=== PATIENT | male | born 1965 | race Caucasian/White ===

== ENCOUNTER 2016-03-31 10:36 | Emergency (ER) | payer BC, OTHER ==
[~2016-03-31] VITALS: Wt 109.0 kg
[~2016-03-31 10:36] MED LIST: NO MEDS
[2016-03-31] MEDS ORDERED: MINE3.5O30 LEFT EYE (12:38)
[2016-03-31] MEDS ORDERED: PRED20TA PO (12:38)
[2016-03-31] MEDS ORDERED: ACYC400T2 PO (12:40)
--- NOTE | 2016-03-31 12:55 | ERD ---
ER Documentation Chief Complaint Date/Time DATE: 03/31/16 TIME: 12:41 Chief Complaint LEFT SIDE FACIAL PARALYSIS ONSET AT 0400. SPEECH CLEAR.NO MOTOR DEF HPI The patient is a 51-year-old male with no past medical or surgical history here with 2 days of left eyelid drooping and left-sided mouth drooping. He reports a recent upper respiratory infection, which has now since resolved. He denies chest pain, difficulty breathing, difficulty swallowing, shortness of breath, dizziness, lightheadedness, nausea, vomiting, diarrhea, numbness or weakness anywhere, gait disturbance, limb numbness or tingling, or any other symptoms or concerns. ROS All systems reviewed and are negative except as per history of present illness. Medications Home Meds Active Scripts Acyclovir* (Acyclovir*) 400 Mg Tablet, 400 MG PO 5 TIMES DAILY for 10 Days, TAB Prov:DEE JOHNSON, RESTA[employer]ANT HOURLY MANAGER 03/31/16 Mineral Oil/Petrolatum,White (ARTIFICIAL TEARS EYE OINT) 3.5 Gm Oint...g., 1 APPLIC LEFT EYE NEEDED Y for DRY EYES, #1 EA Prov:DEE JOHNSON NP 03/31/16 Prednisone* (Prednisone*) 20 Mg Tab, 40 MG PO DAILY for 4 Days, TAB Prov:DEE JOHNSON, EMERY 03/31/16 Reported Medications [No Meds] No Conflict Check 02/12/10 Allergies Allergies: Coded Allergies: No Known Drug Allergies (Verified Allergy, Mild, 02/12/10) PMhx/Soc History of Surgery: No Anesthesia Reaction: No Hx Neurological Disorder: No Hx Respiratory Disorders: No Hx Cardiac Disorders: No Hx Psychiatric Problems: No Hx Miscellaneous Medical Probl: No Hx Alcohol Use: Yes Hx Substance Use: No Hx Tobacco Use: Yes Physical Exam Vitals Vital Signs Date Time Temp Pulse Resp B/P Pulse Ox O2 Delivery O2 Flow Rate FiO2 03/31/16 10:41 98.8 90 21 158/75 98 Physical Exam INITIAL VITAL SIGNS: Reviewed by me GENERAL: Alert. Well developed and well nourished. No respiratory distress HEAD: Head is normocephalic. Atraumatic. EYES: EOMI. PERRL. No scleral icterus. No conjunctival injection. ENT: External ears and nose normal. Decreased nasolabial fold on the left side. Left side of the mouth lower than the right side of the mouth. Nasal passages patent. Moist mucous membranes. NECK: Supple. Full range of motion. Trachea midline. RESPIRATORY: No tachypnea. Clear to auscultation bilaterally. No wheezing, rales , or rhonchi. CV: Regular rate and rhythm. No murmurs, rubs, or gallops ABDOMEN: Soft, non-distended, non-tender. No guarding. No rebound. No masses. Bowel sounds normal in all quadrants. BACK: No CVA tenderness. Full ROM. EXTREMITIES: No obvious deformity. No clubbing or cyanosis. No edema. Sensation intact to light touch all extremities. Strength 5/5 in all joints of all extremities. Strong hand grasps. Peripheral pulses strong. SKIN: Warm and dry. No diaphoresis. No obvious rashes or lesions. NEUROLOGIC: Alert and oriented x 4. + Left eyelid drooping. + Left eyelid unable to be shut tight. + Left corner of the mouth is drooped. + Smile asymmetrical with left side of the mouth lower. + Unable to raise left eyebrow. Cranial nerve exam normal except for cranial nerve VII. cerebellar exam normal: Rapid alternating movements, [id number], heel to perez normal. Negative Romberg. No focal neurologic deficits other than the left eyelid drooping, the left corner of the mouth drooping the asymmetrical smile, and the decreased nasolabial fold on the left side. Speech is normal. Moves all extremities equally. Gait steady. Results 24 hrs Current Medications Medications (Trade) Dose Ordered Sig/Nisreen Route PRN Reason Start Time Stop Time Status Last Admin Dose Admin Prednisone (Prednisone) 60 mg ONCE ONCE PO 03/31/16 13:00 03/31/16 13:00 DC 03/31/16 12:49 Procedures/MDM Nursing Notes Reviewed Previous Medical Records requested via [employer]. EMERGENCY DEPARTMENT COURSE / MEDICAL DECISION MAKING: The patient comes to the ED secondary to left-sided eyelid drooping and left- sided mouth drooping 2 days. Differential diagnosis upon initial evaluation includes but is not limited to: CVA, Matson's palsy The patient was treated with prednisone 60 mg by mouth. The patient's history of present illness and physical exam are most consistent with Matson's palsy. His hand grasps were strong bilaterally. Bilateral upper extremity strength 5/5. Sensation intact to light touch of bilateral upper extremities. Bilateral lower extremity strength 5/5. Sensation intact to light touch of bilateral lower extremities. He was ambulatory with steady gait. He was able to walk on heels and toes. Negative Romberg. Rapid alternating movements, [id number], and finger to nose intact. Cranial nerve exam normal except for cranial nerve VII. The case was discussed with Dr. Holland, who agreed with the assessment and plan. It was agreed that the patient is an appropriate candidate for outpatient management and follow-up with treatment for Matson's palsy. Final impression: Matson's palsy Based on patient's history of present illness and physical examination the decision was made to discharge. There is no evidence of life threatening injuries or illnesses at this time. On re-examination, patient resting in no distress, stable vital signs, reports feeling better and safe for discharge with outpatient follow up with PMD in 2-3 days. Patient given return precautions. He verbalized understanding and agreed to return precautions. He will return here immediately for any new or worsening symptoms. He agrees with the plan of care and all of his questions and concerns were addressed prior to discharge. He agrees with the plan of care. I instructed him to please patch his left eye at night while he is sleeping and use artificial tears in his left eye frequently. I informed him of the dangers of allowing his eye to dry out including vision loss. He verbalized understanding and agreed. Patient's blood pressure was elevated but appears stable without evidence of hypertensive emergency, end organ damage, chest pain or shortness of breath. The patient was counseled about the risks of untreated hypertension and urged to pursue outpatient monitoring and therapy in 2-3 days with their primary care physician. Prescriptions Prednisone Acyclovir Artificial tears Departure Diagnosis: Primary Impression: Matson palsy Condition: Stable Patient Instructions: Matson's Palsy Additional Instructions: Llame al doctor RACHAEL y jose césar MANSOOR PARA DENTRO DE 2-3 MCFADDEN.Dgale a la secretaria que nosotros le instruimos hacer esta mansoor.Avise o llame si meadows condicin se empeora antes de la mansoor. Regresa aqui si peor o no mejor. DEE JOHNSON NP Mar 31, 2016 12:54
[2016-03-31] MEDS ORDERED: predniSONE 20 MG TAB PO ONE (13:00)
== END 2016-03-31 12:56 | disposition home or self-care (01) ==
LOC: FTE 10:36
DX: G51.0 Bell's palsy (principal)
CPT/HCPCS: J7512; Z7502; 99284

== ENCOUNTER 2018-06-22 12:32 | Day surgery (SDC) | payer OTHER ==
[~2018-06-22] VITALS: Ht 165.1 cm; Wt 107.7 kg
[~2018-06-22 12:32] MED LIST changes: +ACYC400T2 PO; +MINE3.5O30 LEFT EYE; +PRED20TA PO
[2018-06-22] MEDS ORDERED: AMLODIPINE (13:18)
[2018-06-22 13:23] VITALS: Ht 165.1 cm; Wt 107.7 kg
[2018-06-22 13:28] VITALS: BP 133/87; PULSE 94; RESP 16
--- NOTE | 2018-06-22 13:32 | PREAC ---
Date/Time of Note Date/Time of Note DATE: 06/22/18 TIME: 13:31 Anesthesia Eval and Record Evaluation Time Pre-Procedure Interview DATE: 06/22/18 TIME: 13:31 Age 53 Sex male NPO: 8 hrs Preoperative diagnosis + occult blood Planned procedure colonoscopy Past Medical History Past Medical History: Includes Cardio: HTN GI: Obesity Surgery & Anesthesia Issues No known issue Meds Anticoagulation: No Beta Uma within 24 hr: No Reason Beta Uma not given: Pt. not on B-Uma Active Scripts Acyclovir* (Acyclovir*) 400 Mg Tablet, 400 MG PO 5 TIMES DAILY for 10 Days, TAB Prov:DEE JOHNSON, MULTI OPERATION MACHINE OPERATOR 03/31/16 Mineral Oil/Petrolatum,White (ARTIFICIAL TEARS EYE OINT) 3.5 Gm Oint...g., 1 APPLIC LEFT EYE NEEDED PRN for DRY EYES, #1 EA Prov:DEE JOHNSON, MULTI OPERATION MACHINE OPERATOR 03/31/16 Prednisone* (Prednisone*) 20 Mg Tab, 40 MG PO DAILY for 4 Days, TAB Prov:DEE JOHNSON, MULTI OPERATION MACHINE OPERATOR 03/31/16 Reported Medications [Amlodipine] No Conflict Check 06/22/18 [No Meds] No Conflict Check 02/12/10 Meds reviewed: Yes Allergies Coded Allergies: No Known Drug Allergies (Verified Allergy, Mild, 02/12/10) Allergies Reviewed: Yes Labs/Studies Labs Reviewed: Reviewed by anesthesiologist test: N/A Pre-procedure Exam Airway: Adequate mouth opening, Adequate thyromental dist Mallampati: Mallampati II Teeth: Normal Lung: Normal Heart: Normal ASA Physical Status ASA physical status: 2 Emergency: None Planned Anesthetic General/MAC: MAC Pre-operative Attestations Prior to commencing anesthesia and surgery, the patient was re-evaluated, there was verification of: *The patient's identity *The results of appropriate recent lab work and preoperative vital signs *The above evaluation not changing prior to induction *Anesthetic plan, risk benefits, alternative and complications discussed with patient/family; questions answered; patient/family understands, accepts and wishes to proceed. KIRSTY HUFFMAN June 22, 2018 13:32
[2018-06-22] MEDS ORDERED: PROPOFOL 40 ML ONE (13:33)
[2018-06-22] MEDS ORDERED: LIDOCAINE 2% (SDV) 5 ML INJ ONE (13:33)
[2018-06-22] MEDS ORDERED: ACETAMINOPHEN 500 MG TAB PO PRN (14:00)
[2018-06-22] MEDS ORDERED: FENTAnyl 50 MCG/ML VIAL IV PRN (14:00)
[2018-06-22] MEDS ORDERED: ALBUTEROL 0.083% (NEB) 2.5 MG/3 ML AMP HHN PRN (14:00)
[2018-06-22] MEDS ORDERED: ONDANSETRON 4 MG INJ IV PRN (14:00)
--- NOTE | 2018-06-22 14:06 | PAC ---
Date/Time of Note Date/Time of Note DATE: 06/22/18 TIME: 14:05 Post-Anesthesia Notes Post-Anesthesia Note Last documented vital signs 1405 -- T 98, Hr 88, 116/76, 98%, rr 16 Activity: WNL Respiratory function: WNL Cardiovascular function: WNL Mental status: Baseline Pain reasonably controlled: Yes Hydration appropriate: Yes Nausea/Vomiting absent: Yes KIRSTY HUFFMAN June 22, 2018 14:06
== END 2018-06-22 14:40 | disposition home or self-care (01) ==
LOC: GIL 12:32
PROVIDERS: ATTEND Internal Medicine Gastroenterology
DX: K92.1 Melena (principal); K64.8 Other hemorrhoids; D12.4 Benign neoplasm of descending colon; I10 Essential (primary) hypertension
CPT/HCPCS: 45380; 88305; Z7610